=== PATIENT | male | born 1935 | race Caucasian/White ===

== ENCOUNTER → 2018-10-03 | Outpatient (CLI) | payer MEDICARE, OTHER ==
[~2018-10-03] MED LIST: ACE325 PO; ALLO-119 PO; ALLO100T70 PO; ASCO-182 PO; ASPI-1403 PO; ASPI-1471 PO; ASPI81TA94 PO; ATOR10TA24 PO; ATOR10TA65 PO; ATOR20TA22 PO; CEPH500T7 PO; CHOL200074 PO; CLO75 PO; CLOP75TA43 PO; DOXY-228 PO; FOLI-68 PO; GABA-549 PO; IBUP600T22 PO; LEV500 PO; LEVO-85 PO; LEVO75TA73 PO; LOR5/325 PO; OLM20 PO; OMEP-218 PO; PRE5 PO; RAMI10CA9 PO; RAMI10CA93 PO; SILD25TA6 PO; SIMV-49 PO; VALA100062 PO; VITA100T4 PO; Z-BEC; ZINC30CA2 PO
[2018-10-03 14:07] LABS: PLATELET COUNT, AUTOMATED 226 K/uL (150-450)
== END ==
LOC: LAB 13:46
PROVIDERS: ATTEND Family Medicine
DX: E03.9 Hypothyroidism, unspecified (principal); M10.9 Gout, unspecified; I10 Essential (primary) hypertension; E53.8 Deficiency of other specified B group vitamins
CPT/HCPCS: 36415; 82040; 82247; 82310; 82374; 82435; 82565; 82746; 82947; 84075; 84132; 84155; 84295; 84443; 84450; 84460; 84520; 84550; 85025